=== PATIENT | male | born 1980 ===

== ENCOUNTER 2019-07-13 13:33 | Inpatient (IN) | payer MEDICAID, OTHER ==
[~2019-07-13] VITALS: Ht 170.2 cm; Wt 68.2 kg
[2019-07-13] MEDS ORDERED: LORazepam 2 MG/ML VIAL IM ONE (18:15)
[2019-07-13] MEDS ORDERED: QUEtiapine FUMARATE 100 MG TABLET PO ONE (18:15)
[2019-07-13] MEDS ORDERED: LORazepam 2 MG TABLET PO ONE (18:15)
[2019-07-13] MEDS ORDERED: DiphenhydrAMINE HCL 50 MG/ML VIAL IM ONE (18:15)
[2019-07-13] MEDS ORDERED: PROMETHAZINE HCL 25 MG TABLET PO ONE (18:15)
[2019-07-13] MEDS ORDERED: HALOPERIDOL LACTATE 5 MG/ML VIAL IM ONE (18:15)
[2019-07-13 20:05] LABS: BASOPHILS % (AUTO) 0.4 % (0.0-2.0); EOSINOPHILS % (AUTO) 0.5 % (1.0-6.0); HEMATOCRIT 41.8 % (41-53); HEMOGLOBIN 14.1 g/dL (13.5-17.5); LYMPHOCYTES # (AUTO) 2.6 K/uL (1.0-4.8); LYMPHOCYTES % (AUTO) 28.1 % (22.0-44.0); MEAN CORPUSCULAR HEMOGLOBIN 29.8 pg (26.0-34.0); MEAN CORPUSCULAR HGB CONC 33.7 G/dL (31.0-37.0); MEAN CORPUSCULAR VOLUME 89 fL (80-100); MONOCYTES # (AUTO) 0.5 K/uL (0.1-1.0); MONOCYTES % (AUTO) 5.6 % (2.0-9.0); NEUTROPHILS % (AUTO) 65.4 % (40.0-70.0); PLATELET COUNT (AUTO) 370 K/uL (150-450); RED BLOOD CELL COUNT(AUTO) 4.72 MIL/uL (4.50-5.90); RED CELL DISTRIBUTION WIDTH 16.1 % (11.5-14.5)
[2019-07-13 20:28] LABS: ALANINE AMINOTRANSFERASE 13 U/L (12-78); ALBUMIN 3.2 g/dL (3.4-5.0); ALKALINE PHOSPHATASE 66 U/L (46-116); ANION GAP 9 mmol/L (8-16); ASPARTATE AMINOTRANSFERASE 17 U/L (15-37); BILIRUBIN,TOTAL 0.4 mg/dL (0.1-1.0); CALCIUM, TOTAL 8.1 mg/dL (8.8-10.5); CARBON DIOXIDE 26 mmol/L (22-29); CHLORIDE 108 mmol/L (98-107); CREATININE 0.85 mg/dL (0.60-1.30); GLOMERULAR FILTR. RATE CALC > 60 mL/min (>60); GLUCOSE,RANDOM 95 mg/dL (70-110); POTASSIUM 3.9 mmol/L (3.5-5.1); SODIUM SERUM 143 mmol/L (136-145); TOTAL PROTEIN, SERUM 6.6 g/dL (6.4-8.2)
[2019-07-13 20:43] VITALS: BP 138/91
[2019-07-13] MEDS ORDERED: MAG HYDROX/AL HYDROX/SIMETH ES 30 ML SUSPENSION UDCUP PO PRN (21:15)
[2019-07-13] MEDS ORDERED: NICOTINE 14 MG/24 HOUR PATCH TD PRN (21:15)
[2019-07-13] MEDS ORDERED: ONDANSETRON HCL 4 MG TABLET PO PRN (21:15)
[2019-07-13] MEDS ORDERED: IBUPROFEN 400 MG TABLET PO PRN (21:15)
[2019-07-13] MEDS ORDERED: CloNIDine HCL 0.1 MG TABLET PO PRN (21:15)
[2019-07-13] MEDS ORDERED: DOCUSATE SODIUM 100 MG CAPSULE PO PRN (21:15)
[2019-07-13] MEDS ORDERED: ACETAMINOPHEN 325 MG TABLET PO PRN (21:15)
[2019-07-13] MEDS ORDERED: ALBUTEROL SULFATE HFA 90 MCG/PUFF 8 GM INHALER IH PRN (21:15)
[2019-07-13] MEDS ORDERED: PETROLATUM,WHITE 28 GM JELLY TP PRN (21:15)
[2019-07-13] MEDS ORDERED: LOPERAMIDE HCL 2 MG CAPSULE PO PRN (21:15)
[2019-07-13] MEDS ORDERED: GuaiFENesin/D-METHORPHAN [SUGAR-FREE] 200-20MG/10 ML SYRUP UDCUP PO PRN (21:15)
[2019-07-13] MEDS ORDERED: MAGNESIUM HYDROXIDE SUSPENSION 30 ML UDCUP PO PRN (21:15)
[2019-07-13 23:26] LABS: UREA NITROGEN, BLOOD 14 mg/dL (7-18)
[2019-07-14 07:00] LABS: CHOL/HDL RATIO 1.9 (4.2-7.3); FREE T4 (FREE THYROXINE) 0.74 ng/dL (0.76-1.46); THYROID STIMULATING HORMONE 2.27 uIU/mL (0.36-3.74)
[2019-07-14] MEDS: LORazepam 2 MG TABLET PO PRN ×2 (08:48→13:35)
[2019-07-14 11:11] VITALS: BP 130/87
[2019-07-14] MEDS: ONDANSETRON HCL 4 MG TABLET PO PRN (11:40)
[2019-07-14] MEDS ORDERED: CloNIDine HCL 0.1 MG TABLET PO PRN (12:00)
[2019-07-14] MEDS ORDERED: ALBUTEROL SULFATE HFA 90 MCG/PUFF 8 GM INHALER IH PRN (12:00)
[2019-07-14] MEDS ORDERED: ACETAMINOPHEN 325 MG TABLET PO PRN (12:00)
[2019-07-14] MEDS ORDERED: MAGNESIUM HYDROXIDE SUSPENSION 30 ML UDCUP PO PRN (12:00)
[2019-07-14] MEDS ORDERED: MAG HYDROX/AL HYDROX/SIMETH ES 30 ML SUSPENSION UDCUP PO PRN (12:00)
[2019-07-14] MEDS ORDERED: NICOTINE 14 MG/24 HOUR PATCH TD PRN (12:00)
[2019-07-14] MEDS ORDERED: DOCUSATE SODIUM 100 MG CAPSULE PO PRN (12:00)
[2019-07-14] MEDS ORDERED: LOPERAMIDE HCL 2 MG CAPSULE PO PRN (12:00)
[2019-07-14] MEDS ORDERED: PETROLATUM,WHITE 28 GM JELLY TP PRN (12:00)
[2019-07-14] MEDS ORDERED: GuaiFENesin/D-METHORPHAN [SUGAR-FREE] 200-20MG/10 ML SYRUP UDCUP PO PRN (12:00)
[2019-07-14] MEDS ORDERED: IBUPROFEN 400 MG TABLET PO PRN (12:00)
[2019-07-14] MEDS: PANTOPRAZOLE SODIUM 40 MG DR TABLET PO SCH (12:18)
[2019-07-14 14:10] LABS: AMPHET/METH SCREEN,URINE POSITIVE (NEGATIVE); BARBITURATE SCREEN, URINE NEGATIVE (NEGATIVE); BENZODIAZEPINES SCREEN,URINE NEGATIVE (NEGATIVE); CANNABINOID SCREEN,URINE NEGATIVE (NEGATIVE); COCAINE SCREEN,URINE NEGATIVE (NEGATIVE); METHADONE SCREEN, URINE NEGATIVE (NEGATIVE); OPIATE SCREEN,URINE POSITIVE (NEGATIVE); PHENCYCLIDINE SCREEN,URINE NEGATIVE (NEGATIVE)
[2019-07-14] MEDS: OLANZapine 10 MG TABLET PO SCH (17:15)
[2019-07-15] MEDS ORDERED: INFLUENZA VIRUS VACCINE QVS 2019-20 (3YR+)/PF 60 MCG/0.5 ML SYRINGE IM ONE (08:00)
[2019-07-15] MEDS: OLANZapine 10 MG TABLET PO SCH ×2 (08:16→17:05)
[2019-07-15] MEDS: PANTOPRAZOLE SODIUM 40 MG DR TABLET PO SCH (08:17)
[2019-07-15] MEDS: LORazepam 2 MG TABLET PO PRN ×3 (08:17→19:34)
[2019-07-15 08:48] VITALS: BP 136/100
[2019-07-15] MEDS: ONDANSETRON HCL 4 MG TABLET PO PRN (14:46)
[2019-07-15 16:00] VITALS: BP 145/91
[2019-07-15] MEDS: ZOLPIDEM TARTRATE 10 MG TABLET PO PRN (20:34)
[2019-07-15] MEDS: HALOPERIDOL 5 MG TABLET PO PRN (20:34)
[2019-07-16] MEDS: LORazepam 2 MG TABLET PO PRN ×3 (02:13→17:52)
[2019-07-16] MEDS: HALOPERIDOL 5 MG TABLET PO PRN ×3 (02:13→17:52)
[2019-07-16] MEDS: OLANZapine 10 MG TABLET PO SCH ×2 (08:58→16:53)
[2019-07-16] MEDS: PANTOPRAZOLE SODIUM 40 MG DR TABLET PO SCH (08:58)
[2019-07-16 09:20] VITALS: BP 153/91
[2019-07-16 16:00] VITALS: BP 129/82
[2019-07-16] MEDS: ZOLPIDEM TARTRATE 10 MG TABLET PO PRN (22:48)
[2019-07-17 09:18] VITALS: BP 127/96
[2019-07-17] MEDS: PANTOPRAZOLE SODIUM 40 MG DR TABLET PO SCH (09:20)
[2019-07-17] MEDS: OLANZapine 10 MG TABLET PO SCH (09:21)
[2019-07-17] MEDS: HALOPERIDOL 5 MG TABLET PO PRN (10:17)
[2019-07-17] MEDS: LORazepam 2 MG TABLET PO PRN (10:17)
[2019-07-17] MEDS ORDERED: OLAN10TA3 PO (12:11)
[2019-07-17 13:20] VITALS: BP 124/92
== END 2019-07-17 14:15 | disposition home or self-care (01) | DRG 750 ==
LOC: EMS 13:36 → 3EC 19:48
PROVIDERS: ADMIT Psychiatry & Neurology Psychiatry; ATTEND Psychiatry & Neurology Psychiatry
DX: F25.0 Schizoaffective disorder, bipolar type (principal); R45.850 Homicidal ideations; R45.851 Suicidal ideations; E03.9 Hypothyroidism, unspecified; F11.10 Opioid abuse, uncomplicated; F32.9 Major depressive disorder, single episode, unspecified; I10 Essential (primary) hypertension; F17.210 Nicotine dependence, cigarettes, uncomplicated; F10.10 Alcohol abuse, uncomplicated; Z59.0 Homelessness; Z23 Encounter for immunization; Z79.899 Other long term (current) drug therapy
CPT/HCPCS: 84436; 84439; 84443; 90686; G0480; J1200; J1630; J2060; Q0162